=== PATIENT | male | born 1945 | race Caucasian/White ===

== ENCOUNTER → 2017-01-30 | Outpatient (CLI) | payer MEDICARE, OTHER | LOC: KOH-I 11:35 | DX: M25.562 Pain in left knee (principal) | CPT/HCPCS: 73564 ==

== ENCOUNTER → 2020-09-11 | Outpatient (CLI) | payer MEDICARE ==
[~2020-09-11] MED LIST: ASPIR-LOW81 MG PO; ASPIRIN EC81 MG PO; ATORVASTATIN CA20 MG PO; BETAPACE80 MG PO; CLOPIDOGREL75 MG PO; ELIQUIS 5 MG TAB5 MG PO; GLUCOPHAGE XR500 MG PO; LOPRESSOR 50 MG50 MG PO; LOSARTAN-HCTZ1 EAC1 PO; NORVASC10 MG PO; TYLENOL 500 MG500 MG PO; VIAGRA100 MG PO
== END ==
LOC: HEART 5 08:30
DX: I25.119 Atherosclerotic heart disease of native coronary artery with unspecified angina pectoris (principal); I25.2 Old myocardial infarction; I08.3 Combined rheumatic disorders of mitral, aortic and tricuspid valves; R93.49 Abnormal radiologic findings on diagnostic imaging of other urinary organs
CPT/HCPCS: 78452; 93306; A9502; J2785